=== PATIENT | male | born 1985 | race Caucasian/White ===

== ENCOUNTER 2022-01-10 19:40 | Emergency (ER) | payer MEDICAID ==
[~2022-01-10] VITALS: Ht 162.6 cm; Wt 80.1 kg
[2022-01-11] MEDS ORDERED: KETOROLAC 30MG/ML VIAL IM STA (00:07)
[2022-01-11] MEDS ORDERED: FAMOTIDINE 20MG TABLET PO ONE (00:15)
[2022-01-11 00:36] LABS: BASOPHILS % 0.8 % (0.0-2.0); EOSINOPHILS % 0.9 % (0.0-5.0); HEMATOCRIT. 41.8 % (42.0-52.0); HEMOGLOBIN. 14.2 g/dL (14.0-18.0); LYMPHOCYTES % 35.1 % (20.0-50.0); MEAN CORPUSCULAR HEMOGLOBIN 28.9 pg (28.0-32.0); MEAN CORPUSCULAR VOLUME 85.4 fL (80.0-94.0); MEAN PLATELET VOLUME 8.7 fl (7.4-10.4); MONOCYTES % 7.8 % (2.0-8.0); NEUTROPHILS % 55.4 % (40.0-76.0); PLATELET 208 x1000/uL (130-400); RED BLOOD CELL COUNT 4.89 mill/uL (4.7-6.1); RED CELL DISTRIBUTION WIDTH 13.6 % (11.6-14.6)
[2022-01-11 00:45] LABS: CHLORIDE 106 mEq/L (98-107)
[2022-01-11] MEDS ORDERED: ACET-2708 MT (01:50)
[2022-01-11] MEDS ORDERED: FAMO-135 MT (01:50)
[2022-01-11] MEDS ORDERED: KETOROLAC 30MG/ML VIAL IM NR (02:15)
[2022-01-11] MEDS ORDERED: FAMOTIDINE 20MG TABLET PO NR (02:15)
[2022-01-11 02:27] VITALS: BP 124/75
== END 2022-01-11 02:30 | disposition home or self-care (01) ==
LOC: ER 19:40
DX: K80.20 Calculus of gallbladder without cholecystitis without obstruction (principal); K76.0 Fatty (change of) liver, not elsewhere classified
CPT/HCPCS: 36415; 76705; 80053; 83690; 85025; 93005; 96372; 99285; J1885